=== PATIENT | male | born 1950 | race Caucasian/White ===

== ENCOUNTER 2016-12-01 12:45 | Emergency (ER) | payer MEDICAID ==
[~2016-12-01] VITALS: Ht 175.3 cm; Wt 92.0 kg
[~2016-12-01 12:45] MED LIST: DEPA500T3 PO; ENAL20TA81 PO; GLYB1TAB50 PO; PERC10TA27 PO; ROSU5 PO; TRIA50 PO
[2016-12-01 12:49] VITALS: BP 159/75; PULSE 69; RESP 17; TEMP 98.2; O2SAT 98
--- NOTE | 2016-12-01 12:57 | PD ---
Physical Exam Time Seen by Provider: 12:54 Narrative 66-year-old male presents with complaint of right lower back pain since Wednesday after slipping on a wet floor and falling in his bathroom. Denies hitting his head or loss of consciousness. Denies anticoagulant therapy. Was seen by the doctor they came to his residence and gave him pain medications which he says he hasn't been taking. He is here today requesting being patched up with a lidocaine patch for pain. Patient ambulatory in triage. Patient seen in triage. Vital signs reviewed. Patient taken to medical bed. Data Data Last Documented VS Vital Signs Date Time Temp Pulse Resp B/P (MAP) Pulse Ox O2 Delivery O2 Flow Rate FiO2 12/01/16 12:49 98.2 69 17 159/75 [phone] MDM Supervised Visit with ROSCOE: Shanta Way Dec 01, 2016 12:57
[2016-12-01] MEDS ORDERED: LIDOCAINE HCL 5% PATCH T-DERMAL ONE (13:15)
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
[2016-12-01] MEDS ORDERED: LIDO1PAD52 TOPICAL (13:25)
== END 2016-12-01 13:35 | disposition home or self-care (01) ==
LOC: NEPK 12:45
DX: M54.5 Low back pain (principal); W01.0XXA Fall on same level from slipping, tripping and stumbling without subsequent striking against object, initial encounter; I10 Essential (primary) hypertension; E11.9 Type 2 diabetes mellitus without complications; E78.00 Pure hypercholesterolemia, unspecified
CPT/HCPCS: 99283

== ENCOUNTER 2017-04-19 08:29 | Emergency (ER) | payer MEDICARE, MEDICAID ==
[~2017-04-19] VITALS: Ht 175.3 cm; Wt 93.0 kg
[~2017-04-19 08:29] MED LIST changes: +LIDO1PAD52 TOPICAL
[2017-04-19 08:35] VITALS: BP 162/74; PULSE 66; RESP 16; TEMP 97.6; O2SAT 96
[2017-04-19] MEDS ORDERED: DIVA250ER PO (09:24)
[2017-04-19] MEDS ORDERED: DEPA500T3 PO ×2 (09:24)
[2017-04-19] MEDS ORDERED: LIDOCAINE HCL 5% PATCH T-DERMAL ONE (09:30)
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
[2017-04-19] MEDS ORDERED: LIDO1PAD52 TOPICAL (09:33)
[2017-04-19] MEDS ORDERED: DICL1SOL3 TOPICAL (09:59)
== END 2017-04-19 10:06 | disposition home or self-care (01) ==
LOC: NEPK 08:29
DX: S46.912A Strain of unspecified muscle, fascia and tendon at shoulder and upper arm level, left arm, initial encounter (principal); F31.9 Bipolar disorder, unspecified; E78.00 Pure hypercholesterolemia, unspecified; E11.9 Type 2 diabetes mellitus without complications; I10 Essential (primary) hypertension; Z88.1 Allergy status to other antibiotic agents; X58.XXXA Exposure to other specified factors, initial encounter
CPT/HCPCS: 99283

== ENCOUNTER 2017-05-07 12:05 | Emergency (ER) | payer MEDICARE, MEDICAID ==
[~2017-05-07] VITALS: Ht 177.8 cm; Wt 100.0 kg
[~2017-05-07 12:05] MED LIST changes: +DICL1SOL3 TOPICAL; +DIVA250ER PO; -ENAL20TA81 PO; -GLYB1TAB50 PO; -PERC10TA27 PO; -ROSU5 PO; -TRIA50 PO
[2017-05-07 12:22] VITALS: BP 163/83; PULSE 75; RESP 16; TEMP 97.9; O2SAT 98
== END 2017-05-07 12:59 | disposition left against medical advice (07) ==
LOC: NED 12:05
DX: Z53.21 Procedure and treatment not carried out due to patient leaving prior to being seen by health care provider (principal)
CPT/HCPCS: 99281